=== PATIENT | male | born 1950 | race Caucasian/White ===

== ENCOUNTER 2021-10-18 13:29 | Emergency (ER) | payer MEDICARE, SELFPAY ==
[2021-10-18 13:36] VITALS: BP 100/67; PULSE 80; RESP 20; TEMP 35.7; O2SAT 94; BMI 37.1
[2021-10-18 14:37] LABS: PCR FLU A Negative PCR FLU A (Negative); PCR FLU B Negative PCR FLU B (Negative)
[2021-10-18 14:39] LABS: SARS PCR* POSITIVE SARS-CoV-2 (Negative)
[2021-10-18 15:40] LABS: Creatinine, Point-of-Care* 2.1 mg/dl (0.6-1.3)
--- NOTE | 2021-10-18 16:19 | ED.GENADULT ---
HPI - General Adult General Chief complaint: Cough Stated complaint: Cough Time Seen by Provider: 10/18/21 14:07 History of Present Illness HPI narrative: 71-year-old male coming in today complaining of a mild cough, congestion, runny nose feeling like he has a cold since Thursday. He is not short of breath. He does have a history of COPD and so he is concerned that he has COVID-19. He denies any sick contacts that he is aware of. He has had no fevers. Normal appetite. No diarrhea or skin rashes. No urinary symptoms. No chest pain or abdominal pain. He is vaccinated for COVID-19 with a booster. Related Data Home Medications Medication Instructions Recorded Confirmed albuterol sulfate 90 mcg/actuation INHALATION 10/18/21 aerosol inhaler atorvastatin 40 mg tablet 40 mg PO DAILY 10/18/21 10/18/21 carvedilol 25 mg tablet 25 mg PO BID 10/18/21 10/18/21 fluticasone fur. 100 mcg-umeclid 1 inh INHALATION DAILY 10/18/21 10/18/21 62.5 mcg-vilant 25 mcg inhalat.powder (Trelegy Ellipta) losartan 100 mg tablet 150 mg PO DAILY 10/18/21 10/18/21 nitroglycerin 0.4 mg sublingual 0.4 mg SUBLINGUAL Q5M PRN 10/18/21 10/18/21 tablet spironolactone 25 mg tablet 25 mg PO DAILY 10/18/21 10/18/21 trazodone 50 mg tablet 25 - 100 mg PO HS 10/18/21 10/18/21 warfarin 1 mg tablet mg 10/18/21 Previous Rx's Medication Instructions Recorded nirmatrelvir 150 mg-ritonavir 100 See Rx Instructions .ROUTE 10/18/21 mg tablet (EUA) (Paxlovid) .COMPLEX #20 tab Allergies Allergy/AdvReac Type Severity Reaction Status Date / Time oxycodone AdvReac Intermediate Vomiting Verified 10/18/21 13:40 Review of Systems Status of ROS: Reports: 10 or more systems reviewed and unremarkable except as noted in History and below [facility] Medical History COPD (chronic obstructive pulmonary disease) Social History Smoking Status: Former smoker Second hand tobacco smoke exposure: No How often do you have a drink containing alcohol: never How often do you have six or more drinks on one occasion: Never AUDIT-C Alcohol total score: 0 Non-prescribed substance use: denies use Exam Narrative: Exam Narrative: Obese, well-developed patient in no acute distress. Alert and oriented. Answers questions appropriately. Mood and affect are appropriate. Thoughts are goal oriented and rational. No tangential or magical thinking noted. Patient speaks in full sentences without needing to catch their breath. HEENT: Normocephalic atraumatic. Pupils are equally round reactive to light. Extraocular muscles are intact. Conjunctivae are moist without any icterus noted. Moist mucous membranes. Posterior pharynx is normal. Neck is soft without any lymphadenopathy or thyromegaly. No masses are appreciated. Cardiovascular: Heart is regular rate and rhythm S1 and S2 are present without any murmurs. Lungs: Clear to auscultation bilaterally no wheezes rhonchi or rales are appreciated. Patient takes deep breaths without any discomfort. Abdomen: Soft, protuberant and nontender nondistended with normal bowel sounds. Extremities: Bilateral lower extremities are without edema. Skin: Well perfused without any obvious rashes. Const: Vital Signs, click to edit/add: Vital Signs - 24 hr 10/18/21 13:36 Temperature 96.3 F L Pulse Rate [Pulse Oximeter] 80 Respiratory Rate 20 Blood Pressure [Ri ght Upper Arm] 100/67 Pulse Oximetry 94 Course Vital Signs Vital signs: Initial Vital Signs Temperature 96.3 F L 10/18/21 13:36 Temperature Source Temporal Artery Scan 10/18/21 13:36 Pulse Rate 80 10/18/21 13:36 Respiratory Rate 20 10/18/21 13:36 Blood Pressure 100/67 10/18/21 13:36 Blood Pressure Mean 78 10/18/21 13:36 Pulse Oximetry 94 10/18/21 13:36 Oxygen Delivery Method 10/18/21 13:36 Vital Signs Temperature 96.3 F L 10/18/21 13:36 Pulse Rate 80 10/18/21 13:36 Respiratory Rate 20 10/18/21 13:36 Blood Pressure 100/67 10/18/21 13:36 Pulse Oximetry 94 10/18/21 13:36 Temperature 96.3 F L 10/18/21 13:36 Pulse Rate 80 10/18/21 13:36 Respiratory Rate 20 10/18/21 13:36 Blood Pressure 100/67 10/18/21 13:36 Pulse Oximetry 94 10/18/21 13:36 Medical Decision Making MDM Narrative Medical decision making narrative: COVID-19 test did come back positive. Therefore proceed with a point of care creatinine which is slightly elevated. Patient will be prescribed Paxlovid at the lower dose. I went through all of his medications through the liver pool COVID-19 med interaction site and there is an interaction with atorvastatin as well as trazodone. We discussed stopping the atorvastatin and holding back on the trazodone. We discussed potential side effects of paxlovid, we discussed quarantine time, we discussed reasons to return to the ER. Patient had no other questions or concerns. Lab Data Lab results reviewed: Yes I reviewed the patient's lab results Labs: Lab Results 10/18/21 10/18/21 Range/Units 13:45 15:22 SARS-CoV-2 (PCR) POSITIVE SARS-CoV-2 A (Negative) Influenza Type A (PCR) Negative PCR FLU A (Negative) Influenza Type B (PCR) Negative PCR FLU B (Negative) POC Creatinine 2.1 H (0.6-1.3) mg/dl Discharge Plan Discharge Clinical Impression: COVID-19 Patient Disposition: Home, Self-Care Condition: Stable Additional Instructions: Hold your Atorvastatin - restart 3 days after last dose of Paxlovid. Hold Trazodone if possible, otherwise do not take more than 25mg at night time while on Paxlovid. Quarantine for 10 days starting the 1st day symptoms started. Prescriptions: New Paxlovid (EUA) 150-100 mg tablet See Rx Instructions .ROUTE .COMPLEX Qty: 20 0RF Rx Instructions: take ONE 150 mg tablet of nirmatrelvir with ONE 100 mg tablet of ritonavir twice daily for 5 days No Action atorvastatin 40 mg tablet 40 mg PO DAILY 0RF Label Comments: TAKE 1 TABLET BY MOUTH EVERYDAY AT BEDTIME carvedilol 25 mg tablet 25 mg PO BID 0RF Label Comments: TAKE 1 TABLET BY MOUTH TWICE A DAY WITH MEALS trazodone 50 mg tablet 25 - 100 mg PO HS 0RF Label Comments: TAKE 1/2 TO 2 TABLETS BY MOUTH AT BEDTIME NEEDED FOR SLEEP. spironolactone 25 mg tablet 25 mg PO DAILY 0RF Label Comments: TAKE 1 TABLET BY MOUTH EVERY DAY nitroglycerin 0.4 mg tablet, sublingual 0.4 mg sublingual Q5M PRN0RF Label Comments: PLACE 1 TABLET UNDER THE TONGUE EVERY 5 MINUTES IF NEEDED FOR CHEST PAIN. warfarin 1 mg tablet 0RF Label Comments: TAKE BY MOUTH 2 MG (1 MG X 2) EVERY SAT & TAKE 1.5 MG (1 MG X 1.5) ALL OTHER DAYS OR DIRECTED albuterol sulfate 90 mcg/actuation HFA aerosol inhaler INHALATION 0RF Label Comments: PLEASE SEE ATTACHED FOR DETAILED DIRECTIONS losartan 100 mg tablet 150 mg PO DAILY 0RF Label Comments: TAKE 1 AND 1/2 TABLETS BY MOUTH ONCE DAILY Trelegy Ellipta 100-62.5-25 mcg blister with device 1 inh INHALATION DAILY 0RF Label Comments: INHALE 1 PUFF BY MOUTH ONCE DAILY Follow Up/Referrals: Josué Baca MD [Primary Care Provider] - Stand Alone Forms: [employer]([facility] Info Instructions
== END 2021-10-18 16:23 | disposition home or self-care (01) ==
PROVIDERS: Emergency Provider Family Medicine; PCP Family Medicine
DX: U07.1 COVID-19 (principal); E78.5 Hyperlipidemia, unspecified; Z79.899 Other long term (current) drug therapy
CPT/HCPCS: 82565; 87502; 87635; 99284

== ENCOUNTER 2023-12-18 11:23 | Outpatient (CLI) | payer MEDICARE, SELFPAY ==
--- NOTE | 2023-12-18 12:19 | W.ANESCHARGE ---
Anesthesia Charges Start Date/Time Anesthesia Start Date: 12/18/23 Anesthesia Start Time: 12:41 Stop Date/Time Anesthesia Stop Date: 12/18/23 Anesthesia Stop Time: 13:04 Summary Extremes of Age - Over 70 or under 1: MDA
--- NOTE | 2023-12-18 13:07 | P.ANES_ITS ---
Anesthesia Charges Start Date/Time Anesthesia Start Date: 12/18/23 Anesthesia Start Time: 12:41 Stop Date/Time Anesthesia Stop Date: 12/18/23 Anesthesia Stop Time: 13:04 Summary Extremes of Age - Over 70 or under 1: PROPOSAL REVIEW ANALYST
== END 2023-12-18 11:24 | disposition home or self-care (01) ==
PROVIDERS: PCP Family Medicine; Visit Provider Internal Medicine Gastroenterology
DX: K52.9 Noninfective gastroenteritis and colitis, unspecified (principal); K57.30 Diverticulosis of large intestine without perforation or abscess without bleeding
CPT/HCPCS: 00811; 45380; 88305; 99100; J2704

== ENCOUNTER 2024-06-16 11:53 | Emergency (ER) | payer MEDICARE, SELFPAY ==
--- OUTSIDE RECORDS SUMMARY | 2024-06-16 11:56 | XMS_ITS | Clinical Summary ---
Author Organization [facility] Address [address] [place] [address] Care Team Providers Care Scow Hand Name Role Phone Justin Sandoval MD Unavailable Josué Baca MD Primary Care Provider Rocio Serra MD Unavailable Libra Brito COMMUNITY DEVELOPMENT AIDE Unavailable Allergies Active Allergy Reactions Criticality Noted Date Comments Atorvastatin Other - Describe In Comment Field 06/08/2024 Unclear. Diazepam GI Upset Low 07/10/2020 Oxycodone Vomiting Medium 10/29/2016 Other reaction(s): GI intolerance Hydrocodone-Acetaminop hen Vomiting,Headache Medium 02/11/2013 VERIFIED Medications acetaminophen (TYLENOL EXTRA STRGTH) 500 mg tablet Take 500 mg by mouth each time if needed. Max acetaminophen dose: 4000mg in 24 hrs. Active traZODone (DESYREL) 50 mg tablet TAKE 1/2 TO 2 TABLETS BY MOUTH AT BEDTIME NEEDED FOR SLEEP. 022 Active albuterol HFA (PRO-AIR; VENTOLIN; PROVENTIL) 90 mcg/actuation inhalerIndication s:Acute bacterial bronchitis Inhale 2 Puffs by mouth every 4 hours if needed for Shortness of Breath 1st choice or Wheezing 1st choice. For breathing; use with spacer to get a full dose 1 Each 2 023 Active nitroglycerin (NITROSTAT) 0.4 mg sublingual tabletIndications :CAD in klamath artery Place 1 tablet under the tongue every 5 minutes if needed for Chest Pain. If patient requesting >25 doses in 30D, to provider to authorize 25 Tablet 023 Active warfarin (COUMADIN) 1 mg tabletIndications :Paroxysmal atrial fibrillation (HC),Factor V Leiden mutation (HC),Anticoagulat ion monitoring, INR range 2-3 Take by mouth 2 mg (1 mg x 2) every Wed; 1.5 mg (1 mg x 1.5) all other days in the evening OR as directed 025 Active omeprazole (PRILOSEC) 20 mg Delayed-Release capsuleIndication s:Chronic GERD TAKE 1 CAPSULE(20 MG) BY MOUTH DAILY BEFORE A MEAL 90 Capsule 1 025 Active rosuvastatin (CRESTOR) 10 mg tabletIndications :Hyperlipidemia, unspecified hyperlipidemia type Take 1 Tablet (10 mg) by mouth at bedtime. 90 Tablet 3 025 Active amLODIPine (NORVASC) 10 mg tabletIndications :Benign essential HTN Take 1 Tablet (10 mg) by mouth once daily. 90 Tablet 3 025 Active carvediloL (COREG) 25 mg tabletIndications :Benign essential HTN Take 1 Tablet (25 mg) by mouth two times daily with meals. 180 Tablet 3 025 Active glipiZIDE extended-release (GLUCOTROL XL) 2.5 mg Extended-Release tabletIndications :Type 2 diabetes mellitus with diabetic nephropathy, 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) Take 1 Tablet (2.5 mg) by mouth once daily before a meal. 90 Tablet 1 025 Active losartan (COZAAR) 50 mg tabletIndications :HFrEF (heart failure with reduced ejection fraction) (HC) Take 1 Tablet (50 mg) by mouth once daily. 90 Tablet 3 025 Active sertraline (ZOLOFT) 100 mg tabletIndications :Anxiety Take 1 Tablet (100 mg) by mouth once daily in the morning. 90 Tablet 3 025 Active sertraline (ZOLOFT) 50 mg tabletIndications :Anxiety TAKE 1 TABLET(50 MG) BY MOUTH EVERY MORNING 90 Tablet 3 025 Active CPAPIndications:O SA on CPAP Standard tubing 1 q 3 months, Length of Need: 99 months, Frequency of use: Daily 1 Device 11 020 2024 Discontinued(* Patient states no longer taking) aspirin chewable 81 mg chewable tablet Take 81 mg by mouth once daily with a meal. 2024 Discontinued(* Med complete/Regim en complete/Level of care change) carvediloL (COREG) 25 mg tabletIndications :Benign essential HTN Take 1 tablet by mouth 2 times daily with meals. 0 020 2024 Discontinued(R eorder (E-cancel not sent)) durable medical equipment (DME)Indications: Foot pain, right,Posterior tibial tendon dysfunction 01EF-L Airselect, Standard, Large 1 Each 023 2024 Discontinued(* Patient states no longer taking) cholecalciferol, Vitamin D3, 5,000 unit tab tablet Take by mouth once daily. 2024 Discontinued(* Patient states no longer taking) amLODIPine (NORVASC) 10 mg tabletIndications :Benign essential HTN Take 1 Tablet (10 mg) by mouth once daily. 90 Tablet 3 024 2024 Discontinued(R eorder (E-cancel not sent)) omeprazole (PRILOSEC) 20 mg Delayed-Release capsuleIndication s:Chronic GERD Take 1 Capsule (20 mg) by mouth once daily before a meal. 90 Capsule 2 024 2024 Discontinued polyethylene glycol-electrolyt e (GOLYTELY) 236-22.74-6.74 -5.86 gram suspensionIndicat ions:Polyp of colon, unspecified part of colon, unspecified type Drink 2 liters the day before colonoscopy and 2 liters 6 hours before colonoscopy appointment 4000 mL 2024 Discontinued(* Med complete/Regim en complete/Level of care change) glipiZIDE extended-release (GLUCOTROL XL) 2.5 mg Extended-Release tabletIndications :Type 2 diabetes mellitus with diabetic nephropathy, 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) Take 1 Tablet (2.5 mg) by mouth once daily before a meal. 90 Tablet 024 2024 Discontinued(R eorder (E-cancel not sent)) losartan (COZAAR) 50 mg tabletIndications :HFrEF (heart failure with reduced ejection fraction) (HC) Take 1 Tablet (50 mg) by mouth once daily. 90 Tablet 024 2024 Discontinued(R eorder (E-cancel not sent)) sertraline (ZOLOFT) 100 mg tabletIndications :Anxiety Take 1 Tablet (100 mg) by mouth once daily in the morning. 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 Other pulmonary embolism wit hout acute cor pulmonale, unspecified chronicity 05/27/2021 Elevated serum immunoglobulin free light chains 02/10/2019 CKD (chronic kidney disease) stage 3, GFR 30-59 ml/min 11/04/2018 Obstructive sleep apnea 01/20/2018 Bicuspid aortic valve 04/22/2017 Malignant neoplasm metastatic to bone 02/25/2017 Primary malignant neoplasm of prostate 7 Paroxysmal atrial fibrillation 02/01/2017 Factor V Leiden mutation 11/03/2016 Chronic GERD 11/03/2016 Hyperlipidemia, unspecified 11/03/2016 Insomnia 11/03/2016 Benign essential HTN 11/03/2016 Anticoagulation monitoring, INR range 2-3 2016 Kidney stone 10/29/2016 Aneurysm of thoracic aorta 09/19/2016 Overview (06/17/2017): Overview: Ascending aortic aneurysm Moderate COPD (chronic obstructive pulmonary dis ease) 09/19/2016 Type 2 diabetes mellitus with diabetic nephropat hy 09/13/2014 Polyp of colon HFrEF (heart failure with reduced ejection fract ion) Overview (07/09/2020): ECHO EF=20 - 30% alum bridge 01/2017 Resolved Problems Problem Noted Date Diagnosed Date Resolved Date Stage 3b chronic kidney disease 06/03/2023 06/08/2024 Chronic systolic heart failure 02/10/2019 07/09/2020 Palliative care by specialist 11/02/2018 12/01/2022 Congestive heart failure 04/22/2017 Systolic heart failure 02/12/201706/17 Generalized ischemic myocardial dysfunction 02/05/2017 12/01/2022 Respiratory failure with hypoxia 02/05/2017 06/16/2019 Prostate cancer 12/10/2016 06/17/2017 Controlled type 2 diabetes m ellitus without complication, without long-term current use of insulin 11/03/2016 12/31/2018 CAD in [place]lam[place] artery 11/03/2016 018 Overview (11/12/2016): Angiogram at [place] 04/28/2016 (done following a positive nuclear stress test). This Described as showing left main 30%, proximal LAD 20%, mid LAD 40%, proximal circumflex 30%, proximal RCA 20%, mid RCA 30%, distal RCA 90% with right PDA receiving collaterals from sinoatrial artery. No intervention performed. 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) Chronic vascular insufficiency of intestine 12/23/2013 12/01/2022 Overview (06/17/2017): Overview: Mesenteric ischemia (05/2010) Gastritis 05/25/2020 Encounters Date Type Department Care Team Description 06/12/2024 Refill [facility] [address] [place] [address] Josué Baca MD Refill Request (Sertraline) 06/08/2024 10:30 AM CORN HUSKER Office Visit [facility] [address] [facility] [address] Josué Baca MD Medicare ANNUAL (subsequent) Visit (73 year old) 06/08/2024 Anticoagulation (warfarin) [facility] [address] [facility] [address] 1, [facility] Anticoagulation (Office Visit ) 06/08/2024 Travel 06/03/2024 10:00 AM CORN HUSKER Orders Only [facility] [address] [facility] [place] [address] Lab, [place] [facility] 06/03/2024 Travel 05/24/2024 Telephone [facility] [address] [facility] [address] Josué Baca MD Anticoagulation (BPA - Omeprazole) 05/23/2024 Telephone [facility] [place] [address] Josué Baca MD Lab (LAb Orders Needed) 05/22/2024 Refill [facility] [address] [facility] [address] Josué Baca MD Refill Request (Omeprazole) 05/12/2024 11:15 AM CORN HUSKER Orders Only [facility] [address] [facility] [place] [address] Lab[facility] [place] [facility] 05/12/2024 11:00 AM CORN HUSKER Nurse/Clinic Staff Only [facility] [address] [facility] [place] [address] Immunization/Injectio n (VITAMIN B-12 INJECTION ) 05/12/2024 Anticoagulation (warfarin) [facility] [address] [facility] [place] [address] 1[facility] Anticoagulation 05/12/2024 Travel 04/29/2024 Orders Only [facility] Scanner 1 scan: (1-Ord) [facility], 04/29/2024 04/14/2024 11:15 AM CORN HUSKER Nurse/Clinic Staff Only [facility] [address] [place] [address] Immunization/Injectio n (VITAMIN B-12 INJECTION ) 04/14/2024 10:30 AM CORN HUSKER Orders Only [facility] [address] [place] [address] Lab[facility] [place] 04/14/2024 Anticoagulation (warfarin) [facility] [address] [place] [address] 1, [facility] Anticoagulation 04/14/2024 Travel 04/03/[address] [address] Josué Bcaa MD Refill Request (Sertraline) 04/01/2024 Refill [facility] [address] [place] [address] Josué Baca MD Refill Request (Warfarin) from Last 3 Months Immunizations Immunization Administration Dates Next Due COVID-19 vaccine (Ads-Fi NTEdgeConneX 30mcg/0.3mL) BELA KHOURY 06/29/2020,06/08/2020 Influenza, High-dose Inactivated 01/05/2020 Influenza, High-dose Quadriv alent Inactivated 01/07/2023,12/25/2021,01/21/2021,2019 Influenza, Inactivated IIV3 (Age 65+ Years) Preserv Free 01/03/2019,01/19/2018 Pneumococcal Conj 20-valent (Prevnar 20) 12/01/2022 Pneumococcal Poly,23-Valent (Pneumovax) 09/18/2015,12/28/2009 Pneumococcal conj 13-Valent (Prevnar 13) 12/29/2013 Td (Age >=7 Years) 10/05/2012 Zoster (Shingrix-RZV, recombinant) 09/03/2018, Zoster (Zostavax-ZVL, live) 04/28/2014 Family History Medical History Relation Name Comments Cancer Father Bladder Cancer-breast Maternal Aunt Cancer-breast Maternal Grandmother Cancer-breast Mother Anesthesia Problem No Family History Relation Name Status Comments Father Maternal Aunt Maternal Grandmother Mother Social History Tobacco Use Types Packs/Day Years Used Date Smoking Tobacco: Former Cigarettes 2 30 0 04/06/1971 - 04/06/2001 Smokeless Tobacco: Never Tobacco Cessation:Counseling Given: No Alcohol Use Standard Drinks/Week Comments Not Currently 0 (1 standard drink = 0.6 oz pur e alcohol) PHQ-2 Answer Date Recorded PHQ-2 TOTAL SCORE 0 06/08/2024 Social Connections Answer Date Recorded Do you often feel lonely or isolated from those around you? 0 06/08/2024 Financial Resource Strain Answer Date R ecorded Difficulty of Paying Living Expenses 3 06/08/2024 Difficulty of Paying Living Expenses Not on file 06/08/2024 Food Insecurity Answer Date Recorded Do you worry your food will run out before you are able to buy more? 1 06/08/2024 Transportation Needs Answer Date Record ed Does lack of transportation keep you from medica l appointments? 1 06/08/2024 Does lack of transportation keep you from work, meetings or getting things that you need? 1 06/08/2024 Housing Stability Answer Date Recorded What is your housing situation today? 1 06/08/2024 Utilities Answer Date Recorded Do you have trouble paying f or utilities (for example, heat, electricity, water, phone)? 1 06/08/2024 Sex and Gender Information Value Date Recorded Sex Assigned at Not on file Legal Sex Male 8:47 AM CDT Gender Identity Not on file Sexual Orientation Not on file Obstetrics History Last Filed Vital Signs Vital Sign Reading Time Taken Comments Blood Pressure 133/84 06/08/2024 10:25 AM CORN HUSKER Pulse 81 06/08/2024 10:25 AM CORN HUSKER Temperature 36.4 C (97.6 F) 02/23/2024 11:19 AM CORN HUSKER Respiratory Rate 17 02/23/2024 11:19 AM CORN HUSKER Oxygen Saturation 94% 06/08/2024 10:25 AM CORN HUSKER Inhaled Oxygen Concentration - - Weight 86.6 kg (191 lb) 06/08/2024 10:25 AM CORN HUSKER Height 166.2 cm (5' 5.43) 06/08/2024 10:[address] Body Mass Index 31.36 06/08/2024 10:25 AM CORN HUSKER Plan of Treatment Upcoming Encounters Date Type Department Care Team (Late st Contact Info) Description 07/07/2024 11:00 AM CDT Orders Only [facility] [address] [facility] [address] [place] 07/07/2024 11:30 AM CDT Nurse/Clinic Staff Only [facility] [address] [place] [address] 08/22/2024 11:15 AM CDT Orders Only [facility] [address] [place] [address] [place] 08/25/2024 11:30 AM CDT Office Visit [facility] [address] [place] [address] Rocio Serra MD [address] [place] [address] 12/09/2024 11:00 AM CDT Orders Only [facility] [address] [place] [address] [place] 12/12/2024 10:55 AM CDT Office Visit [facility] [address] Josué Baca MD [address] [facility] [place] [address] Health Maintenance Due Date Last Done Comments Tdap 09/10/1961 Tetanus booster 10/05/2022 10/05/2012 RSV vaccine for adults or (1 - 1-dose 75+ series) 09/10/2023 COVID-19 vaccine series ( season) 2023 01/11/2021, 06/29/2020, 06/08/2020 Influenza Vaccine (#1) 2023 , 01/03/2019, 01/19/2018 BMI (ht and wt on same day) for age 18+ 06/08/2025 06/08/2024, 11/30/2023, 06/03/2023, Additional history exists Depression screening for age 12+ 06/08/2025 06/08/2024, 06/08/2024, 06/04/2023, Additional history exists Medicare Wellness for age 65+ 06/09/2025, 06/03/2023, 06/02/2022, Additional history exists Lipids for age 45-75 06/03/2029 06/03/2024, 05/29/2023, 05/28/2022, Additional history exists Colonoscopy through age 75 12/17/203312/17, 12/18/2023, 08/03/2019, Additional history exists Zoster (shingles) series for age 50+ Completed 09/03/2018, 04/05/2018, 04/28/2014 Hepatitis C screening for ag e 18-79 Completed 02/09/2020 Pneumococcal series for age 50+ Completed 12/01/2022, 09/18/2015, 12/29/2013, Additional history exists Medical Devices Implanted Type [employer] Workflow Consultant Device Identifier Shelf Expiration Date Model / Serial / Lot Stent Uret [id number] Contour - [id number] Implanted:Qty: 1 on 11/21/2016 by Justin Sandoval MD at [facility] Left: Ureter [facility] 11/14/2018 [id number] / / [id number] Stent Uret [id number] Silhouette - [id number] Implanted:Qty: 1 on 12/12/2016 by Justin Sandoval MD at [facility] Left: Ureter [employer] Urszula [id number] / / [id number] Procedures Procedure Name Priority Date/Time Associated Diagnosis Comments INR,POCT Routine 06/08/2024 11:07 AM CORN HUSKER Paroxysmal atrial fibrillation (HC) Factor V Leiden mutation (HC) Anticoagulation monitoring, INR range 2-3 VITAMIN B12 Routine 06/03/2024 10:04 AM CORN HUSKER Vitamin B12 deficiency LIPID PANEL W REFLEX MEASURED LDL Routine 06/03/2024 10:04 AM CORN HUSKER Type 2 diabetes mellitus with diabetic nephropathy, 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) BASIC METABOLIC PANEL Routine 06/03/2024 10:04 AM CORN HUSKER Type 2 diabetes mellitus with diabetic nephropathy, 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) HEMOGLOBIN A1C MONITORING (POCT) Routine 06/03/2024 10:03 AM CORN HUSKER Type 2 diabetes mellitus with diabetic nephropathy, 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) URINE ALBUMIN TO CREATININE RATIO, RANDOM Routine 06/03/2024 10:00 AM CORN HUSKER Type 2 diabetes mellitus with diabetic nephropathy, 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) INR,POCT Routine 05/12/2024 11:00 AM CORN HUSKER Paroxysmal atrial fibrillation (HC) Factor V Leiden mutation (HC) Anticoagulation monitoring, INR range 2-3 SCAN-EYE EXAM 04/29/2024 12:00 AM CORN HUSKER INR,POCT Routine 04/14/2024 10:23 AM CORN HUSKER Paroxysmal atrial fibrillation (HC) Factor V Leiden mutation (HC) Anticoagulation monitoring, INR range 2-3 COLONOSCOPY SCREENING Routine 12/18/2023 8:15 AM CDT Chronic diarrhea ANTI HCV Routine 02/09/2020 10:07 AM CORN HUSKER Need for hepatitis C screening test from Last 3 Months or Most Recently Relevant to Health Maintenance Results * (ABNORMAL) INR - POCT [47713.2] - Standing Order (06/08/2024 11:07 AM CORN HUSKER) Only the most recent of3 resultswithin the time period is included. INR 2.2(H) ratio [facility] Comment: INRs >2.9 may be falsely elevated in patients receiving either unfractionated Heparin or Low Molecular Weight Heparin. Follow up testing in a hospital laboratory may be helpful if clinically indicated. INR results of > or = 5.0 should be verified using the standard venipuncture procedure. Reference Range 0.9-1.1 Moderate-intensity Warfarin Therapy 2.0-3.0 Higher-intensity Warfarin Therapy 3.0-4.0 PROTHROMBIN TIMEP 26.5(H) 10.5 - 13.1 sec [facility] Comment: Point of care fingerstick Prothrombin Time/INR results may vary from venous Prothrombin Time/INR methodologies. Any results exhibiting inconsistency with the patient's clinical status should be repeated using a venous Prothrombin Time/INR method. Blood BLOOD SPECIMEN / Unknown 06/08/2024 11:07 AM CORN HUSKER 06/08/2024 11:07 AM CORN HUSKER Josué Baca MD LABORATORY Final Result [facility] [address] [place] [address], [facility] [address] [place] [address] * (ABNORMAL) LIPID PANEL W REFLEX MEASURED LDL (06/03/2024 10:04 AM CORN HUSKER) [facility] CHOLESTEROL, TOTAL 238(H) <200 mg/dL [facility] HDL CHOLESTEROL 28(L) > OR = 40 mg/dL [facility] TRIGLYCERIDES 176(H) <150 mg/dL [facility] LDL-CHOLESTEROL 177(H) mg/dL (calc) [facility] Comment: Reference range: <100 Desirable range <100 mg/dL for primary prevention; <70 mg/dL for patients with CHD or diabetic patients with > or = 2 CHD risk factors. LDL-C is now calculated using the José-Cristy calculation, which is a validated novel method providing better accuracy than the Friedewald equation in the estimation of LDL-C. José COLE et al. TAMIR. 2013;310(19): 9685-3130 (http://education.TripFab.MoBank/faq/TNM749) CHOL/HDLC RATIO 8.5(H) <5.0 (calc) [facility] NON HDL CHOLESTEROL 210(H) <130 mg/dL (calc) [facility] Comment: For patients with diabetes plus 1 major ASCVD risk factor, treating to a non-HDL-C goal of <100 mg/dL (LDL-C of <70 mg/dL) is considered a therapeutic option. Blood BLOOD SPECIMEN / Unknown 06/03/2024 10:04 AM CORN HUSKER 06/03/2024 10:05 AM CORN HUSKER Josué Baca MD CHEMISTRY Final Result Performing Organization Address [facility]/ZIP Co de Phone Number [employer] [address] [phone], [email or web address] [address] [place] [address] * VITAMIN B12 (06/03/2024 10:04 AM CORN HUSKER) [facility] VITAMIN B12 529 200 - 1,100 pg/mL [email or web address] Blood BLOOD SPECIMEN / Unknown 06/03/2024 10:04 AM CORN HUSKER 06/03/2024 10:05 AM CORN HUSKER us Josué Baca MD CHEMISTRY Final Result Performing Organization Address [facility] Co de Phone Number [employer] [address] [address], [email or web address] [address] [place] [phone] * (ABNORMAL) BASIC METABOLIC PANEL (06/03/2024 10:04 AM CORN HUSKER) Pathologist [facility] GLUCOSE 111(H) 65 - 99 mg/dL [facility] Comment: Fasting reference interval For someone without known diabetes, a glucose value between 100 and 125 mg/dL is consistent with prediabetes and should be confirmed with a follow-up test. UREA NITROGEN (BUN) 21 7 - 25 mg/dL [facility] CREATININE 1.48(H) 0.70 - 1.28 mg/dL [facility] EGFR 49(L) > OR = 60 mL/min/1.7 3m2 [facility] BUN/CREATININE RATIO 14 6 - 22 (calc) [facility] SODIUM 141 135 - 146 mmol/L [facility] POTASSIUM 4.6 3.5 - 5.3 mmol/L [facility] CHLORIDE 109 98 - 110 mmol/L [facility] CARBON DIOXIDE 26 20 - 32 mmol/L [facility] ELECTROLYTE BALANCE 6(L) 7 - 17 mmol/L (calc) [facility] CALCIUM 8.6 8.6 - 10.3 mg/dL [facility] Blood BLOOD SPECIMEN / Unknown 06/03/2024 10:04 AM CORN HUSKER 06/03/2024 10:05 AM CORN HUSKER us Josué Baca MD CHEMISTRY Final Result Performing Organization Address City/[facility]/ZIP Co de Phone Number [employer] [facility] [address] [place] [address], [place] [phone] [email or web address] [address] [place] [address] * HEMOGLOBIN A1C MONITORING (POCT) (06/03/2024 10:03 AM CORN HUSKER) [facility] POC HEMOGLOBIN A1C 5.8 <6.0 % OF TOTAL HGB [facility] Comment: Any point of care results exhibiting inconsistency with the patient's clinical status should be repeated using a different testing method. Blood BLOOD SPECIMEN / Unknown 06/03/2024 10:03 AM CORN HUSKER 06/03/2024 10:03 AM CORN HUSKER us Josué Baca MD CHEMISTRY Final Result [facility] [address] [place] [address], [place] [phone] [facility] [address] [place] [address] * URINE ALBUMIN TO CREATININE RATIO, RANDOM (06/03/2024 10:00 AM CORN HUSKER) Pathologist [facility] ALB RAND URINE <12.0 mg/L 06/03/2024 11:24 PM CORN HUSKER [facility] CREATININE,URINE 0.86 g/L 06/03/19 11:24 PM CORN HUSKER [facility] ALBUMIN TO CREATININE RATIO,RAND UR 06/03/2024 11:24 PM CORN HUSKER [facility] Comment:Urine Albumin below measurement range, unable to calculate. Urine URINE SPECIMEN / Unknown Non-Blood / Unknown 06/03/2024 10:00 AM CORN HUSKER 06/03/2024 10:00 AM CORN HUSKER Narrative [facility] - 06/03/2024 11:24 PM CORN HUSKER If Albumin to Creatinine Ratio is elevated, consider the following: Elevations seen with incipient nephropathy associated with diabetes mellitus or hypertension. Stress, exercise,hematuria, and urinary tract infection may also produce elevated results. If clinically indicated, confirm with 24 Hour Albumin to Creatinine Ratio. us Josué Baca MD URINE Final Result [facility] [address] [place] [address], [place] * SCAN-EYE EXAM (04/29/2024 12:00 AM CORN HUSKER) us Scanner OTHER Final Result * ANTI HCV (02/09/2020 10:07 AM CORN HUSKER) Pathologist [facility] HEPATITIS C ANTIBODY Non-React tunde Non-React tunde 02/09/2020 5:08 PM CORN HUSKER [facility] Comment:Antibodies to HCV no t detected; does not exclude the possibility of exposure to HCV. Blood BLOOD SPECIMEN / Unknown Venipuncture / Unknown 02/09/2020 10:07 AM CORN HUSKER 02/09/2020 10:07 AM CORN HUSKER Josué Baca MD SEND OUTS Final Result [facility] [address] [place] [address], [place] * COLONOSCOPY (08/03/2019 11:41 AM CDT) 08/03/2019 11:4 1 AM CDT Narrative Transcriptions Magaly Mack DO - 08/08/2019 2:29 PM CDT Patient Name: Juan Leary Procedure Date: 08/03/2019 Gender: Male Date of : 1950 Admit Type: Ambulatory Procedure: Colonoscopy Proceduralist: Magaly Mack MD [facility] Referring MD: Magaly Makc MD Indications/Pre-Op Diagnosis: Iron deficiency anemia Medications: Propofol per Anesthesia Procedure Description: The patient had risks, benefits and alternatives explained to andgave informed consent. The patient had a stable cardiopulmonary status and judged an adequate candidate for conscious sedation. The colonoscope was passed through the anus and advanced to thececum, identified by appendiceal orifice and ileocecal valve. Thecolonoscopy was performed without difficulty. The patient tolerated the procedure well. The quality of the bowel preparation was good. The ileocecal valve, appendiceal orifice, and rectum were photographed. Complications: No immediate complications. Estimated Blood Loss & Specimen: Estimated blood loss: none. Specimen collected - Yes and sent to Laboratory Findings: A 4 mm polyp was found in the cecum. The polyp was semi-pedunculated. The polyp was removed with a hot snare. Resection and retrieval were complete. Verification of patient identification for the specimen was done. Estimated blood loss was minimal. A 12 mm polyp was found in the ascending colon. The polyp was semi-pedunculated. The polyp was removed with a hot snare. Resectionand retrieval were complete. Verification of patient identification forthe specimen was done. Estimated blood loss was minimal. A 4 mm polyp was found in the sigmoid colon. The polyp was semi-pedunculated. The polyp was removed with a hot snare. Resectionand retrieval were complete. Verification of patient identification forthe specimen was done. Estimated blood loss was minimal. Multiple small and large-mouthed diverticula were found in thesigmoid colon. Non-bleeding internal hemorrhoids were found during retroflexion. The hemorrhoids were Grade II (internal hemorrhoids that prolapse butreduce spontaneously). Impressions/Post-Op Diagnosis: - One 4 mm polyp in the cecum, removed with a hot snare. Resected and retrieved. - One 12 mm polyp in the ascending colon, removed with a hot snare. Resected and retrieved. - One 4 mm polyp in the sigmoid colon, removed with a hot snare. Resected and retrieved. - Diverticulosis in the sigmoid colon. - Non-bleeding internal hemorrhoids. Recommendation: - Discharge patient to home. - Patient has a contact number available for emergencies. The signsand symptoms of potential delayed complications were discussed with the patient. Return to normal activities tomorrow. Written discharge instructions were provided to the patient. - High fiber diet. - Continue present medications. - Await pathology results. - Repeat colonoscopy in 3 years for surveillance based on pathology results. Moderate Sedation: Moderate (conscious) sedation was personally administered by an anesthesia professional. The following parameters were monitored:oxygen saturation, heart rate, blood pressure, and response to care. Magaly Mack MD 08/08/2019 2:29:04 PM This report has been signed electronically. 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 05/11/2017 2:32 PM MEDICA L [address] OF [employer] STENOGRAPHER, [facility], 07/27/08 * Full Code (Latest Code Status on File) Date Activated Date Inactivated Comments 08/03/2019 10:33 AM 08/03/2019 5:00 PM Question Answer Comments Code Status Discussion: Discussed * Full Code Date Activated Date Inactivated Comments 12/12/2016 7:11 AM 12/12/2016 8:00 PM * Full Code Date Activated Date Inactivated Comments 11/21/2016 5:17 AM 11/21/2016 2:54 PM Care Teams [facility] Relationship Specialty Start Date End Date Josué Baca MD [address] [place] [address] PCP - General Family Practice 01/12/17 Justin Sandoval MD Surgery - Urology 01/01/17 Rocio Serra MD [address] [place] [address] Oncology Hematology and Oncology 11/22/19 Libra Brito, BETHANY [address] [place] [address] Oncology Nurse Practitioner - Family 11/22/19
[2024-06-16 12:03] VITALS: BP 129/76; PULSE 72; RESP 16; TEMP 36.1; O2SAT 94; BMI 31.0
[2024-06-16 13:21] LABS: Bilirubin Urine 1+ (Negative); Blood Urine 3+ (Negative); Glucose Urine Negative (Negative); Ketones Urine Negative (Negative); Leukocyte Esterase Urine Negative (Negative); Nitrite Urine Negative (Negative); Protein Urine 3+ (Negative); Specific Gravity Urine 1.025 (1.000-1.030); Urobilinogen Urine 0.2 (0.2-1.0); pH Urine 5.5 (5.0-8.5)
[2024-06-16 13:27] LABS: Appearance Urine Cloudy (Clear); Color Urine Red (Yellow)
--- NOTE | 2024-06-16 13:38 | CRLHL7_ITS ---
For Patients: As a result of the Century Cures Act, medical imaging exams and procedure reports are released immediately into your electronic medical record. You may view this report before your referring provider. If you have questions, please contact your health care provider. Indication: Hematuria Technique: Volumetric multidetector CT images of the abdomen and pelvis were obtained after the administration of intravenous contrast. 94 cc Isovue 370 low osmolar intravenous contrast Comparison: CT abdomen and pelvis October 22, 2016 Findings: There is minimal basilar atelectasis and parenchymal scar with moderate emphysematous changes of the lung bases. The liver is normal in attenuation without intrahepatic biliary ductal dilatation. The portal vein is patent. There is prior cholecystectomy. There is no significant common biliary ductal dilatation or abrupt cut off. The spleen is normal in enhancement and size. There is mild thickening of the gastric antrum with re-demonstration of a small duodenal diverticulum. The pancreas is normal in enhancement without significant atrophy. The adrenal glands are unremarkable. The kidneys demonstrate cystic changes and mild atrophy without evidence of hydronephrosis or distal obstructive calculus. Nonobstructive calculi are seen in the inferior left collecting system. There is moderate stool seen throughout the colon with moderate distal colonic diverticulosis without definite evidence of diverticulitis. The appendix is not well visualized. There is no significant mesenteric, retroperitoneal, or pelvic sidewall lymph nodes. There is mild infrarenal abdominal aortic ectasia with scattered atherosclerotic calcification. The solid pelvic viscera are grossly unremarkable. There is no free fluid or free air. Postoperative changes of the ventral abdomen are appreciated. The anterior abdominal wall is intact without significant hernias. The lumbar vertebral body heights are grossly maintained with mild multilevel degenerative disc disease. There is no significant spondylolisthesis or displaced fracture. Impression: 1. Nephrolithiasis and cystic changes of the kidneys without evidence of hydronephrosis or distal obstructive uropathy. 2. Colonic diverticulosis without definite evidence of diverticulitis. Please note that all CT scans at this facility use dose modulation, iterative reconstruction, and/or weight-based dosing when appropriate to reduce radiation dose to as low as reasonably achievable. Dictated by Reinaldo Duncan MD @ 06/16/2024 3:06:22 PM (Electronically Signed)
--- NOTE | 2024-06-16 13:45 | ED.MALEGU ---
HPI - Male Genitourinary General Date Seen: 06/16/24 Chief complaint: Urogenital Problems, Male Stated complaint: Bloody Urine Time Seen by Provider: 06/16/24 13:25 Source: patient Mode of arrival: ambulatory Limitations: no limitations History of Present Illness HPI Narrative: Patient is a 73-year-old male with a history of factor 5 Leiden currently taking warfarin presenting for hematuria. He began to notice the hematuria yesterday. States it is dark red. Thinks he might have lightened up a little bit. Does not have any associated pain, dysuria, abdominal pain, chest pain, shortness of breath, lightheadedness, dizziness, weakness. Has never smoked. Thinks he may have had blood in his urine before but never this bad. No history of cancer. No other concerns noted. Related Data Home Medications ?Medication ?Instructions ?Recorded ?Confirmed albuterol sulfate 90 mcg/actuation inhalation 10/18/21 aerosol inhaler carvedilol 25 mg tablet 25 mg PO BID 10/18/21 06/16/24 fluticasone fur. 100 mcg-umeclid 1 inh inhalation DAILY 10/18/21 10/18/21 62.5 mcg-vilant 25 mcg inhalat.powder (Trelegy Ellipta) losartan 100 mg tablet 50 mg PO DAILY 10/18/21 06/16/24 nitroglycerin 0.4 mg sublingual 0.4 mg sublingual Q5M PRN 10/18/21 06/16/24 tablet trazodone 50 mg tablet 50 mg PO HS 10/18/21 06/16/24 warfarin 1 mg tablet mg 10/18/21 amlodipine 5 mg tablet 5 mg PO DAILY 06/16/24 06/16/24 omeprazole 20 mg capsule,delayed 20 mg PO DAILY 06/16/24 06/16/24 release Previous Rx's ?Medication ?Instructions ?Recorded nitrofurantoin 100 mg PO Q12H 5 days #10 caps 06/16/24 monohydrate/macrocrystals 100 mg capsule (Macrobid) Allergies Allergy/AdvReac Type Severity Reaction Status Date / Time acetaminophen (From Vicodin) Allergy Verified 06/16/24 14:52 diazepam Allergy Verified 06/16/24 14:52 hydrocodone (From Vicodin) Allergy Verified 06/16/24 14:52 oxycodone AdvReac Intermediate Vomiting Verified 06/16/24 14:52 Review of Systems Status of ROS: Reports: 10 or more systems reviewed and unremarkable except as noted in History and below PFSH [facility] Medical History COPD (chronic obstructive pulmonary disease) ?J44.9 - Chronic obstructive pulmonary disease, unspecified (ICD-10) Social History Smoking Status: Former smoker Second hand tobacco smoke exposure: No How often do you have a drink containing alcohol: never How often do you have six or more drinks on one occasion: Never AUDIT-C Alcohol total score: 0 Non-prescribed substance use: denies use Exam Narrative: Exam Narrative: Const: Well-nourished, Well-developed, in no distress Eyes: PERRL, no conjunctival injection, and symmetrical lids HENT: Atraumatic external nose and ears. Moist mucous membranes. Neck: Symmetric, trachea midline, No thyromegaly. CVS: RRR, No murmurs or gallops. Peripheral pulses 2+ and equal in all extremities RESP: Unlabored respiratory effort. Clear to auscultation bilaterally. GI: Nontender/Nondistended, No rebound or guarding. MSK:Extremities w/o deformity, Normal Active ROM Skin: Warm, Dry. No rashes or lesions. Neuro: Normal Muscle tone, No focal neurological deficits. Psych: Awake, Alert, & Oriented x3. Appropriate mood and affect. Const: Vital Signs, click to edit/add: Vital Signs - 24 hr 06/16/24 12:03 06/16/24 15:02 Temperature 96.9 F L Pulse Rate 73 Pulse Rate [Pulse Oximeter] 72 Respiratory Rate 16 16 Blood Pressure 148/84 H Blood Pressure [Ri ght Upper Arm] 129/76 Pulse Oximetry 94 94 Oxygen Delivery Me thod Room Air Room Air Course Vital Signs Vital signs: Initial Vital Signs Temperature 96.9 F L 06/16/24 12:03 Temperature Source Temporal Artery Scan 06/16/24 12:03 Pulse Rate 72 06/16/24 12:03 Respiratory Rate 16 06/16/24 12:03 Blood Pressure 129/76 06/16/24 12:03 Blood Pressure Mean 93 06/16/24 12:03 Blood Pressure Position Sitting 06/16/24 12:03 Pulse Oximetry 94 06/16/24 12:03 Oxygen Delivery Method Room Air 06/16/24 12:03 Vital Signs Temperature 96.9 F L 06/16/24 12:03 Pulse Rate 72 06/16/24 12:03 Respiratory Rate 16 06/16/24 12:03 Blood Pressure 129/76 06/16/24 12:03 Pulse Oximetry 94 06/16/24 12:03 Oxygen Delivery Method Room Air 06/16/24 12:03 Temperature 96.9 F L 06/16/24 12:03 Pulse Rate 73 06/16/24 15:02 Respiratory Rate 16 06/16/24 15:02 Blood Pressure 148/84 H 06/16/24 15:02 Pulse Oximetry 94 06/16/24 15:02 Oxygen Delivery Method Room Air 06/16/24 15:02 MDM - Male Genitourinary MDM Narrative Medical decision making narrative: Patient's a 73-year-old male presenting for hematuria. Is not showing any signs of obstruction at this time. Was able to give a urine sample. Urinalysis shows gross hematuria with some white blood cells and bacteria. No clear signs of a UTI. No history of smoking so cancer risk is less but will do a CT scans IV contrast to better evaluate. CBC BMP also ordered. INR ordered Patient's INR is 2.14. CBC and BMP showed no concerning abnormalities. CT scan reviewed by myself and the radiologist shows no clear signs of his hematuria no other acute findings. At this time considering he does have some bacteria and white blood cells in his urine I will treat him as a UTI. With the warfarin he has a higher chance of bleeding with UTIs. Will discharge him but informed if he needs close follow-up with his primary care provider. He agrees to that. Lab Data Labs: Lab Results 06/16/24 06/16/24 06/16/24 Range/Units 12:55 13:38 13:50 WBC 5.54 (4.50-11.00) K/uL RBC 3.94 L (4.30-5.90) m/uL Hgb 11.2 L (13.5-17.5) gm/dL Hct 34.4 L (37.0-53.0) % MCV 87 (80-100) fL MCH 28 (26-34) pg MCHC 33 (32-36) gm/dL RDW Coeff of Ernesto 14.0 (11.5-15.5) % Plt Count 171 (140-440) K/uL Neut % (Auto) 74.8 H (42.0-72.0) % Lymph % (Auto) 15.5 L (20-44) % [place] % (Auto) 6.5 (0.0-11.0) % Eos % (Auto) 2.5 (0.0-7.0) % Baso % (Auto) 0.5 (0.0-3.0) % Neut # (Auto) 4.10 (1.7-7.0) K/uL Lymph # (Auto) 0.90 (0.90-2.90) K/uL [place] # (Auto) 0.40 (0.00-0.90) K/UL Eos # (Auto) 0.14 (0.00-0.50) K/uL Baso # (Auto) 0.03 (0.00-0.30) K/uL Abs Immat Gran (auto) 0.01 (0.00-0.30) K/uL Imm/Tot Granulo (auto) 0.2 % INR 2.14 H (0.91-1.10) Sodium 141 (135-149) mmol/L Potassium 4.7 (3.6-5.1) mmol/L Chloride 107 (96-114) mmol/L Carbon Dioxide 23 (20-32) mmol/L Anion Gap 11 (7-15) mEq/L BUN 22 (7-30) mg/dL Creatinine 1.3 (0.5-1.5) mg/dL Estimated Creat Clear 44.31 Estimated GFR 57 ml/min Glucose 93 (60-115) mg/dL Calcium 8.8 (8.4-10.6) mg/dL Urine Color Red A (Yellow) Urine Appearance Cloudy A (Clear) Urine pH 5.5 (5.0-8.5) Ur Specific Stamps 1.025 (1.000-1.030) Urine Protein 3+ A (Negative) Urine Glucose (UA) Negative (Negative) Urine Ketones Negative (Negative) Urine Blood 3+ A (Negative) Urine Nitrite Negative (Negative) Urine Bilirubin 1+ A (Negative) Urine Urobilinogen 0.2 (0.2-1.0) Ur Leukocyte Esterase Negative (Negative) Urine RBC >100 A (0-2) Urine WBC 5-10 A (0-5) Urine WBC Clumps None (None) Ur Squamous Epith Cells Few (None-Few) Urine Bacteria Moderate A (None) POC Creatinine 1.4 H (0.6-1.3) mg/dl Discharge Plan Discharge Clinical Impression: Hematuria Qualifiers: Hematuria type: gross Qualified Code(s): R31.0 - Gross hematuria Patient Disposition: Home, Self-Care Condition: Stable Instructions: Hematuria (ED) Additional Instructions: Your hematuria may be related to a UTI. Will start you on antibiotics. Make sure to have close follow-up with the primary care provider as they may want you to see Urology. The bleeding can form clot cm bladder a cause an obstruction. Return if you are unable to urinate also return for any other new or worsening symptoms . Prescriptions: New nitrofurantoin monohyd/m-cryst [Macrobid] 100 mg capsule 100 mg PO Q12H 5 Days Qty: 10 0RF Rx Instructions: must administer with a meal/food No Action carvedilol 25 mg tablet 25 mg PO BID Patient Comments: TAKE 1 TABLET BY MOUTH TWICE A DAY WITH MEALS trazodone 50 mg tablet 50 mg PO HS Patient Comments: TAKE 1/2 TO 2 TABLETS BY MOUTH AT BEDTIME NEEDED FOR SLEEP. nitroglycerin 0.4 mg tablet, sublingual 0.4 mg sublingual Q5M PRN Patient Comments: PLACE 1 TABLET UNDER THE TONGUE EVERY 5 MINUTES IF NEEDED FOR CHEST PAIN. warfarin 1 mg tablet Patient Comments: TAKE BY MOUTH 2 MG (1 MG X 2) EVERY SAT & TAKE 1.5 MG (1 MG X 1.5) ALL OTHER DAYS OR DIRECTED albuterol sulfate 90 mcg/actuation HFA aerosol inhaler INHALATION Patient Comments: PLEASE SEE ATTACHED FOR DETAILED DIRECTIONS losartan 100 mg tablet 50 mg PO DAILY Trelegy Ellipta 100-62.5-25 mcg blister with device 1 inh INHALATION DAILY Patient Comments: INHALE 1 PUFF BY MOUTH ONCE DAILY amlodipine 5 mg tablet 5 mg PO DAILY omeprazole 20 mg capsule,delayed release(DR/EC) 20 mg PO DAILY Follow Up/Referrals: Josué Baca MD [Primary Care Provider] - Stand Alone Forms: [facility] Info Instructions
[2024-06-16 13:57] LABS: Creatinine, Point-of-Care* 1.4 mg/dl (0.6-1.3)
--- OUTSIDE RECORDS SUMMARY | 2024-06-16 13:58 | XMS_ITS | Clinical Summary ---
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 Place 1 tablet under the tongue [...] ion) Overview (07/09/2020): ECHO EF=20 - 30% [facility] 01/2017 Resolved Problems Problem Noted Date Diagnosed [...] use of insulin 11/03/2016 12/31/2018 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 11/03/2016 018 Overview (11/12/2016): Angiogram at [place] 04/28/2016 (done following a positive nuclear stress [...] Type Department Care Team Description 06/12/2024 Refill [facility] [address] [place] [address] Josué Baca MD Refill Request (Sertraline) 06/08/2024 10:30 AM POLICE JUDGE Office Visit [facility] [address] [facility] [place] [address] Josué Baca MD Medicare ANNUAL (subsequent) Visit (73 year old) 06/08/2024 Anticoagulation (warfarin) [facility] [address] [facility] [place] [address] 1, [place] Anticoagulation (Office Visit ) 06/08/2024 Travel 06/03/2024 10:00 AM POLICE JUDGE Orders Only [facility] [address] [facility] [place] [address] Lab, [place] [facility] 06/03/2024 Travel 05/24/2024 Telephone [facility] [address] [facility] [place] [address] Josué Baca MD Anticoagulation (BPA - Omeprazole) 05/23/2024 Telephone [facility] [place] [address] Josué Baca MD Lab (LAb Orders Needed) 05/22/2024 Refill [facility] [address] [facility] [place] [address] Josué Baca MD Refill Request (Omeprazole) 05/12/2024 11:15 AM POLICE JUDGE Orders Only [facility] [address] [facility] [place] [address] [place], [place] [facility] 05/12/2024 11:00 AM POLICE JUDGE Nurse/Clinic Staff Only [facility] [address] [facility] [place] [address] Immunization/Injectio n (VITAMIN B-12 INJECTION ) 05/12/2024 Anticoagulation (warfarin) [facility] [address] [facility] [place] [address] 1, [place] Anticoagulation 05/12/2024 Travel 04/29/2024 Orders Only [facility] Scanner 1 scan: (1-Ord) [facility], 04/29/2024 04/14/2024 11:15 AM POLICE JUDGE Nurse/Clinic Staff Only [facility] [address] [place] [address] Immunization/Injectio n (VITAMIN B-12 INJECTION ) 04/14/2024 10:30 AM POLICE JUDGE Orders Only [facility] [address] [place] [address] Lab, [place] [facility] 04/14/2024 Anticoagulation (warfarin) [facility] [address] [place] [address] 1, [facility] Anticoagulation 04/14/2024 Travel 04/03/[address] [address] Josué Baca MD Refill Request (Sertraline) 04/01/2024 Refill [facility] [address] [place] [address] Josué Baca MD Refill Request (Warfarin) from Last 3 Months Immunizations Immunization Administration Dates Next Due COVID-19 vaccine ([employer] 30mcg/0.3mL) BELA KHOURY 06/29/2020,06/08/2020 Influenza, High-dose Inactivated [...] Comments Blood Pressure 133/84 06/08/2024 10:25 AM POLICE JUDGE Pulse 81 06/08/2024 10:25 AM POLICE JUDGE Temperature 36.4 C (97.6 F) 02/23/2024 11:19 AM POLICE JUDGE Respiratory Rate 17 02/23/2024 11:19 AM POLICE JUDGE Oxygen Saturation 94% 06/08/2024 10:25 AM POLICE JUDGE Inhaled Oxygen Concentration - - Weight 86.6 kg (191 lb) 06/08/2024 10:25 AM POLICE JUDGE Height 166.2 cm (5' 5.43) 06/08/2024 10:[address] Body Mass Index 31.36 06/08/2024 10:25 AM POLICE JUDGE Plan of Treatment Upcoming Encounters Date Type Department Care Team (Late st Contact Info) Description 07/07/2024 11:00 AM CDT Orders Only [facility] [address] [facility] [address] [place] 07/07/2024 11:30 AM CDT Nurse/Clinic Staff Only [facility] [address] [place] [address] 08/22/2024 11:15 AM CDT Orders Only [facility] [address] [place] [address] [place] 08/25/2024 11:30 AM CDT Office Visit [facility] [address] [place] [address] Rocio Serra MD [address] [place] [address] 12/09/2024 11:00 AM CDT Orders Only [facility] [address] [place] [address] [place] 12/12/2024 10:55 AM CDT Office Visit [facility] [place] [address] Josué Baca MD [address] [facility] [place] [address] Health Maintenance Due Date Last Done Comments [...] history exists Medical Devices Implanted Type Area Information Scientist Device Identifier Shelf Expiration Date Model / Serial / Lot Stent Uret [id number] Contour - [id number] Implanted:Qty: 1 on 11/21/2016 by Justin Sandoval MD at [facility] Left: [employer]ter [employer] Urology 11/14/2018 [id number] / / [id number] Stent Uret [id number] Silhouette - [id number] Implanted:Qty: 1 on 12/12/2016 by Justin Sandoval MD at [facility] Left: Ure[employer] Urszula [id number] / / [id number] Procedures Procedure Name Priority Date/Time Associated Diagnosis Comments INR,POCT Routine 06/08/2024 11:07 AM POLICE JUDGE Paroxysmal atrial fibrillation (HC) Factor V Leiden mutation (HC) Anticoagulation monitoring, INR range 2-3 VITAMIN B12 Routine 06/03/2024 10:04 AM POLICE JUDGE Vitamin B12 deficiency LIPID PANEL W REFLEX MEASURED LDL Routine 06/03/2024 10:04 AM POLICE JUDGE Type 2 diabetes mellitus with diabetic nephropathy, 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) BASIC METABOLIC PANEL Routine 06/03/2024 10:04 AM POLICE JUDGE Type 2 diabetes mellitus with diabetic nephropathy, 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) HEMOGLOBIN A1C MONITORING (POCT) Routine 06/03/2024 10:03 AM POLICE JUDGE Type 2 diabetes mellitus with diabetic nephropathy, 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) URINE ALBUMIN TO CREATININE RATIO, RANDOM Routine 06/03/2024 10:00 AM POLICE JUDGE Type 2 diabetes mellitus with diabetic nephropathy, 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) INR,POCT Routine 05/12/2024 11:00 AM POLICE JUDGE Paroxysmal atrial fibrillation (HC) Factor V Leiden mutation (HC) Anticoagulation monitoring, INR range 2-3 SCAN-EYE EXAM 04/29/2024 12:00 AM POLICE JUDGE INR,POCT Routine 04/14/2024 10:23 AM POLICE JUDGE Paroxysmal atrial fibrillation (HC) Factor V Leiden mutation (HC) Anticoagulation monitoring, INR range 2-3 COLONOSCOPY SCREENING Routine 12/18/2023 8:15 AM CDT Chronic diarrhea ANTI HCV Routine 02/09/2020 10:07 AM POLICE JUDGE Need for hepatitis C screening test from Last 3 Months or Most Recently Relevant to Health Maintenance Results * (ABNORMAL) INR - POCT [84325.2] - Standing Order (06/08/2024 11:07 AM POLICE JUDGE) Only the most recent of3 resultswithin the time period is included. INR 2.2(H) ratio [facility] Comment: INRs >2.9 may be falsely elevated [...] PROTHROMBIN TIMEP 26.5(H) 10.5 - 13.1 sec [facility] Comment: Point of care fingerstick Prothrombin Time/INR results may vary from venous Prothrombin Time/INR methodologies. Any results exhibiting inconsistency with the patient's clinical status should be repeated using a venous Prothrombin Time/INR method. Blood BLOOD SPECIMEN / Unknown 06/08/2024 11:07 AM POLICE JUDGE 06/08/2024 11:07 AM POLICE JUDGE Josué Baca MD LABORATORY Final Result [facility] [address] [place] [address], [facility] [address] [place] [address] * (ABNORMAL) LIPID PANEL W REFLEX MEASURED LDL (06/03/2024 10:04 AM POLICE JUDGE) [facility] CHOLESTEROL, TOTAL 238(H) <200 mg/dL [facility] HDL CHOLESTEROL 28(L) > OR = 40 mg/dL [facility] TRIGLYCERIDES 176(H) <150 mg/dL [facility] LDL-CHOLESTEROL 177(H) mg/dL (calc) [facility] Comment: Reference range: <100 Desirable range <100 mg/dL for primary prevention; <70 mg/dL for patients with CHD or diabetic patients with > or = 2 CHD risk factors. LDL-C is now calculated using the José-Cristy calculation, which is a validated novel method providing better accuracy than the Friedewald equation in the estimation of LDL-C. José COLE et al. TAMIR. 2013;310(19): 7634-1141 (http://education.[employer].Imaginatik/faq/YST275) CHOL/HDLC RATIO 8.5(H) <5.0 (calc) [facility] NON HDL CHOLESTEROL 210(H) <130 mg/dL (calc) [facility] Comment: For patients with diabetes plus 1 major ASCVD risk factor, treating to a non-HDL-C goal of <100 mg/dL (LDL-C of <70 mg/dL) is considered a therapeutic option. Blood BLOOD SPECIMEN / Unknown 06/03/2024 10:04 AM POLICE JUDGE 06/03/2024 10:05 AM POLICE JUDGE Josué Baca MD CHEMISTRY Final Result Performing Organization Address [facility]/ZIP Co de Phone Number [facility] [employer] [address] [address], [facility] [address] [place] [address] * VITAMIN B12 (06/03/2024 10:04 AM POLICE JUDGE) [facility] VITAMIN B12 529 200 - 1,100 pg/mL [facility] Blood BLOOD SPECIMEN / Unknown 06/03/2024 10:04 AM POLICE JUDGE 06/03/2024 10:05 AM POLICE JUDGE us Josué Baca MD CHEMISTRY Final Result Performing Organization Address [facility] Co de Phone Number [employer] [address] [address], [facility] [address] [place] [phone] * (ABNORMAL) BASIC METABOLIC PANEL (06/03/2024 10:04 AM POLICE JUDGE) Pathologist [facility] GLUCOSE 111(H) 65 - 99 mg/dL [employer] [facility] Yo[facility] Comment: Fasting reference interval For someone without known diabetes, a glucose value between 100 and 125 mg/dL is consistent with prediabetes and should be confirmed with a follow-up test. UREA NITROGEN (BUN) 21 7 - 25 mg/dL [facility] CREATININE 1.48(H) 0.70 - 1.28 mg/dL [facility] EGFR 49(L) > OR = 60 mL/min/1.7 3m2 [facility] BUN/CREATININE RATIO 14 6 - [...] BLOOD SPECIMEN / Unknown 06/03/2024 10:04 AM POLICE JUDGE 06/03/2024 10:05 AM POLICE JUDGE us Josué Baca MD CHEMISTRY Final Result Performing Organization Address City/[facility]/ZIP Co de Phone Number [employer] [facility] [address] [place] [address], [place] [phone] [facility] [address] [place] [address] * HEMOGLOBIN A1C MONITORING (POCT) (06/03/2024 10:03 AM POLICE JUDGE) [facility] POC HEMOGLOBIN A1C 5.8 <6.0 % OF TOTAL HGB [facility] Comment: Any point of care results exhibiting inconsistency with the patient's clinical status should be repeated using a different testing method. Blood BLOOD SPECIMEN / Unknown 06/03/2024 10:03 AM POLICE JUDGE 06/03/2024 10:03 AM POLICE JUDGE us Josué Baca MD CHEMISTRY Final Result [facility] [address] [place] [address], [place] [phone] [facility] [address] [place] [address] * URINE ALBUMIN TO CREATININE RATIO, RANDOM (06/03/2024 10:00 AM POLICE JUDGE) Pathologist [facility] ALB RAND URINE <12.0 mg/L 06/03/2024 11:24 PM POLICE JUDGE [facility] CREATININE,URINE 0.86 g/L 06/03/19 11:24 PM POLICE JUDGE [facility] ALBUMIN TO CREATININE RATIO,RAND UR 06/03/2024 11:24 PM POLICE JUDGE [facility] Comment:Urine Albumin below measurement range, unable to calculate. Urine URINE SPECIMEN / Unknown Non-Blood / Unknown 06/03/2024 10:00 AM POLICE JUDGE 06/03/2024 10:00 AM POLICE JUDGE Narrative [facility] - 06/03/2024 11:24 PM POLICE JUDGE If Albumin to Creatinine Ratio is elevated, consider the following: Elevations seen with incipient nephropathy associated with diabetes mellitus or hypertension. Stress, exercise,hematuria, and urinary tract infection may also produce elevated results. If clinically indicated, confirm with 24 Hour Albumin to Creatinine Ratio. us Josué Baca MD URINE Final Result [facility] [address] [place] [address], [place] * SCAN-EYE EXAM (04/29/2024 12:00 AM POLICE JUDGE) us Scanner OTHER Final Result * ANTI HCV (02/09/2020 10:07 AM POLICE JUDGE) Pathologist [facility] HEPATITIS C ANTIBODY Non-React tunde Non-React tunde 02/09/2020 5:08 PM POLICE JUDGE [facility] Comment:Antibodies to HCV no t detected; does not exclude the possibility of exposure to HCV. Blood BLOOD SPECIMEN / Unknown Venipuncture / Unknown 02/09/2020 10:07 AM POLICE JUDGE 02/09/2020 10:07 AM POLICE JUDGE Josué Baca MD SEND OUTS Final Result [facility] [address] [place] [address], [place] * COLONOSCOPY (08/03/2019 11:41 AM CDT) 08/03/2019 11:4 1 AM CDT Narrative Transcriptions Magaly Mack DO - 08/08/2019 2:29 PM CDT Patient Name: Juan Leary Procedure Date: 08/03/2019 Gender: Male Date of : 1950 Admit Type: Ambulatory Procedure: Colonoscopy Proceduralist: Magaly Mack MD [facility] Referring MD: Magaly Mack MD Indications/Pre-Op Diagnosis: Iron deficiency anemia Medications: [...] Documents on File Type Date Recorded Patient Filament Coil Winder Expl anation Power of Sewer Pipe Layer Helper 05/11/2017 2:32 PM MEDICA L POWER OF PROCESS PUMPER, [facility], 07/27/08 * Full Code (Latest Code Status on File) Date Activated Date Inactivated Comments 08/03/2019 10:33 AM 08/03/2019 5:00 PM Question Answer Comments Code Status Discussion: Discussed * Full Code Date Activated Date Inactivated Comments 12/12/2016 7:11 AM 12/12/2016 8:00 PM * Full Code Date Activated Date Inactivated Comments 11/21/2016 5:17 AM 11/21/2016 2:[address] Production General Manager Relationship Specialty Start Date End Date Josué Baca MD [address] [place] [address] PCP - General Family Practice 01/12/17 Justin Sandoval MD Surgery - Urology 01/01/17 Rocio Serra MD [address] [place] [address] Oncology Hematology and Oncology 11/22/19 Libra Brito, BETHANY [address] [place] [address] Oncology Nurse Practitioner - Family 11/22/19
[2024-06-16 14:00] LABS: Bacteria Urine Moderate; RBC Urine >100 (0-2); Squamous Epithelial Cell Urine Few (None-Few)
[2024-06-16 14:05] LABS: Basophils Absolute Auto 0.03 K/uL (0.00-0.30); Basophils Percent Auto 0.5 % (0.0-3.0); Eosinophils Absolute Auto 0.14 K/uL (0.00-0.50); Eosinophils Percent Auto 2.5 % (0.0-7.0); Hematocrit 34.4 % (37.0-53.0); Hemoglobin* 11.2 gm/dL (13.5-17.5); Immature Granulocytes Abs Auto 0.01 K/uL (0.00-0.30); Immature Granulocytes Pct Auto 0.2 %; Lymphocytes Percent Auto 15.5 % (20-44); Mean Corpuscular HGB Conc 33 gm/dL (32-36); Mean Corpuscular Hemoglobin 28 pg (26-34); Mean Corpuscular Volume 87 fL (80-100); Monocytes Percent Auto 6.5 % (0.0-11.0); Neutrophils Percent Auto 74.8 % (42.0-72.0); Platelet Count* 171 K/uL (140-440); Red Blood Count 3.94 m/uL (4.30-5.90); White Blood Count* 5.54 K/uL (4.50-11.00)
[2024-06-16 14:11] LABS: Slide Review Reflex No
[2024-06-16 14:12] LABS: Chloride* 107 mmol/L (96-114)
[2024-06-16 14:13] LABS: Potassium* 4.7 mmol/L (3.6-5.1); Sodium* 141 mmol/L (135-149)
[2024-06-16 14:15] LABS: Blood Urea Nitrogen* 22 mg/dL (7-30); Creatinine* 1.3 mg/dL (0.5-1.5); Est. Creatinine Clearance* 44.31; Estimated Glomerular Filt Rate 57 ml/min
[2024-06-16 14:16] LABS: Anion Gap 11 mEq/L (7-15); Calcium* 8.8 mg/dL (8.4-10.6); Carbon Dioxide* 23 mmol/L (20-32); Glucose* 93 mg/dL (60-115)
[2024-06-16 14:17] LABS: INR 2.14 (0.91-1.10)
[2024-06-16 15:02] VITALS: BP 148/84; PULSE 73; RESP 16; O2SAT 94
== END 2024-06-16 15:41 | disposition home or self-care (01) ==
PROVIDERS: Emergency Provider Student in an Organized Health Care Education/Training Program; PCP Family Medicine
DX: R31.0 Gross hematuria (principal)
CPT/HCPCS: 36415; 74177; 80048; 81001; 81003; 82565; 85025; 85610; 87086; 99284; Q9967